=== PATIENT | male | born 2000 | race African-American/Black ===

== ENCOUNTER 2022-06-26 09:23 | Emergency (ER) | payer MEDICAID ==
[~2022-06-26] VITALS: Ht 152.4 cm; Wt 79.5 kg
[2022-06-26 11:05] LABS: Basophils # (auto) 0.1 10 ^3/uL (0-0.2); Eosinophils # (auto) 0.1 10 ^3/uL (0-0.8); Monocytes # (auto) 0.5 10 ^3/uL (0-1.3); Neutrophils # (auto) 5.2 10 ^3/uL (1.6-8.6); White Blood Cell 7.7 10^3/uL (4.4-10.8)
[2022-06-26 11:07] LABS: Basophils % (auto) 1.3 % (0.0-2.0); Eosinophils % (auto) 1.6 % (0.0-7.0); Hematocrit 35.5 % (41.0-53.0); Hemoglobin 11.3 g/dL (13.5-17.5); Lymphocytes # (auto) 1.7 10 ^3/uL (0.4-5.4); Lymphocytes % (auto) 22.5 % (10.0-50.0); Mean Corpuscular Hemoglobin 29.8 pg (28.0-32.0); Mean Corpuscular Hgb Conc. 31.9 g/dL (32.0-36.0); Mean Corpuscular Volume 93.5 fL (80.0-100.0); Monocytes % (auto) 6.8 % (0.0-12.0); Neutrophils % (auto) 67.8 % (37.0-80.0); Red Cell Distribution Width 14.3 % (11.8-14.3)
[2022-06-26 11:18] LABS: Albumin 3.1 g/dL (3.4-5.0); Calcium 8.8 mg/dL (8.5-10.1); Potassium 4.3 mmol/L (3.5-5.1)
[2022-06-26 11:22] LABS: Bilirubin, Total 0.4 mg/dL (0.2-1.0); Total Protein 7.9 g/dL (6.4-8.2)
[2022-06-26] MEDS ORDERED: IOHEXOL 350 MG/ML 100ML IJ ONE (12:42)
[2022-06-26 15:05] VITALS: BP 109/58
== END 2022-06-26 15:08 | disposition home or self-care (01) ==
LOC: ER 09:23
DX: M79.605 Pain in left leg (principal); M79.604 Pain in right leg; Z87.81 Personal history of (healed) traumatic fracture
CPT/HCPCS: 36415; 71275; 80053; 85025; 85379; 93970; 99285; Q9967

== ENCOUNTER 2024-04-29 13:00 | Emergency (ER) | payer MEDICAID ==
[~2024-04-29] VITALS: Ht 177.8 cm; Wt 74.8 kg
[2024-04-29] MEDS: TETANUS-DIPTH-ACEL PERTUSSIS 0.5ML SYR Tdap IM ONE (15:04)
[2024-04-29] MEDS: AMOXICILLIN/CLAVUL 875 MG TAB PO ONE (15:04)
[2024-04-29] MEDS: KETOROLAC TROMETH 60MG/2ML VIAL IM ONE (15:05)
[2024-04-29] MEDS: DexAMETHasone SOD PHOS 10MG/1ML VIAL INJ IM ONE (15:05)
[2024-04-29] MEDS ORDERED: IBUP-1455 PO (15:50)
[2024-04-29] MEDS ORDERED: AUG875T PO (15:50)
[2024-04-29] MEDS ORDERED: ACET500T58 PO (15:50)
[2024-04-29 16:43] VITALS: BP 133/73; PULSE 79; RESP 20; TEMP 98.9; O2SAT 98
== END 2024-04-29 16:46 | disposition home or self-care (01) ==
LOC: ER 13:00
DX: K04.7 Periapical abscess without sinus (principal); F15.90 Other stimulant use, unspecified, uncomplicated; Z98.890 Other specified postprocedural states
CPT/HCPCS: 70486; 90471; 90715; 96372; 99285; J1100; J1885